=== PATIENT | male | born 1980 | race African-American/Black ===

== ENCOUNTER 2023-12-28 12:29 | Emergency (ER) | payer OTHER ==
[~2023-12-28] VITALS: Ht 208.3 cm; Wt 115.7 kg
[2023-12-28] MEDS ORDERED: DOXY100T2 PO (13:10)
[2023-12-28] MEDS ORDERED: VALA100026 PO (13:10)
[2023-12-28] MEDS ORDERED: CHLO473M3 PO (13:10)
[2023-12-28] MEDS ORDERED: DOXYCYCLINE HYCLATE 100 MG TABLET ONE (13:18)
[2023-12-28] MEDS ORDERED: CEFTRIAXONE 1 G VIAL ONE ×2 (13:18→13:23)
[2023-12-28] MEDS ORDERED: LIDOCAINE 1%-EPI 1:100,000 20 ML VIAL ONE (13:18)
[2023-12-28] MEDS ORDERED: LIDOCAINE HCL 2% 20 ML VIAL ONE (13:24)
[2023-12-28] MEDS: DOXYCYCLINE HYCLATE 100 MG TABLET PO ONE (13:28)
[2023-12-28] MEDS: CEFTRIAXONE 1 G VIAL IM ONE (13:28)
[2023-12-28] MEDS ORDERED: VALACYCLOVIR HCL 500 MG TABLET ONE (13:29)
[2023-12-28] MEDS: VALACYCLOVIR HCL 500 MG TABLET PO ONE (13:31)
[2023-12-28 13:32] LABS: BASOPHILS % (AUTO) 0.7 % (0.0-2.0); EOSINOPHILS # (AUTO) 0.1 K/uL (0.0-0.7); EOSINOPHILS % (AUTO) 1.8 % (0.0-7.0); HEMATOCRIT 47.8 % (36.7-47.1); HEMOGLOBIN 16.2 g/dL (12.5-16.3); LYMPHOCYTES # (AUTO) 1.3 K/uL (0.8-4.8); LYMPHOCYTES % (AUTO) 30.8 % (20.5-51.5); MEAN CORPUSCULAR HEMOGLOBIN 31.3 uug (23.8-33.4); MEAN CORPUSCULAR HGB CONC 34 g/dL (32.5-36.3); MEAN CORPUSCULAR VOLUME 92.5 fL (73.0-96.2); MONOCYTES # (AUTO) 0.5 K/uL (0.1-1.30); NEUTROPHILS # (AUTO) 2.4 K/uL (1.8-8.9); NEUTROPHILS % (AUTO) 55.7 % (38.5-71.5); PLATELET COUNT (AUTO) 156 K/uL (152-348); RED BLOOD CELL COUNT(AUTO) 5.17 MIL/uL (4.06-5.63); RED CELL DISTRIBUTION WIDTH 13.2 % (12.1-16.2); WHITE BLOOD COUNT (AUTO) 4.3 K/uL (3.6-10.2)
[2023-12-28 13:37] VITALS: BP 128/78; TEMP 98; O2SAT 98
[2023-12-28 13:40] LABS: ALBUMIN 3.7 g/dL (3.4-5.0); BILIRUBIN,TOTAL 0.9 mg/dL (0.2-1.0); CALCIUM 9.3 mg/dL (8.5-10.1); CREATININE 0.8 mg/dL (0.6-1.3); TOTAL PROTEIN, SERUM 7.5 g/dL (6.4-8.2)
[2023-12-28 13:46] LABS: DIFFERENTIAL COMMENT 1
== END 2023-12-28 13:38 | disposition home or self-care (01) ==
LOC: ER 12:29
DX: J02.9 Acute pharyngitis, unspecified (principal); Z79.899 Other long term (current) drug therapy; Z20.822 Contact with and (suspected) exposure to COVID-19
CPT/HCPCS: 99283; 87426; 80053; 85025; 36415; 96372; 87081; J0696; J3490; A4606; A4663